=== PATIENT | male | born 1970 | race Caucasian/White ===

== ENCOUNTER 2017-05-04 13:14 | Outpatient (CLI) ==
--- NOTE | 2017-05-04 13:35 | DI ---
EXAM: Two views of the chest. History: Cough. Findings: Heart size is within normal limits. No focal consolidation. No appreciable pleural fluid and no pneumothorax. Seen on the lateral view, there is a nodular density projecting over the thora cic spine. Impression: Seen on the lateral view there is a nodular density projecting over the spine which coul d represent prominent lateral osteophytes. Posterior lung nodule cannot be excluded. Recommend furt her evaluation with chest CT.
== END 2017-05-04 13:15 | disposition home or self-care (01) ==
LOC: RAD 13:14
PROVIDERS: ATTEND Family Medicine
DX: R05 Cough (principal); J40 Bronchitis, not specified as acute or chronic